=== PATIENT | female | born 1945 | race Caucasian/White ===

== ENCOUNTER 2018-06-07 10:00 | Outpatient (CLI) | payer OTHER ==
--- NOTE | 2018-06-07 11:17 | ULT ---
THYROID ULTRASOUND: History: Thyroid nodules noted on previous CT done at the [place]. FINDINGS: Real-time imaging of the right and left lobes of the thyroid were performed. Right lobe measures 1.2 x 1.3 x 4.1 cm, and the left lobe 1.3 x 1.7 x 4.8 cm. Both the right and left lobes are very heteroge neous. There are bilateral thyroid nodules, the largest on the right is a solid nodule in the lower p ole measuring 1.0 cm and an approximately 0.9 x 1.5 cm solid appearing nodule in the lower pole of th e left lobe. This lesion was slightly hyperechoic. It is wider than tall. The margins are ill-defined . No calcifications seen associated with this. IMPRESSION: Bilateral thyroid nodules, the largest nodule on the left corresponds to a TIRADS level 3 nodule for which follow up would be recommended given one of the measurements is at 1.5 cm. POS: JOSE
== END 2018-06-07 10:01 | disposition home or self-care (01) ==
LOC: SCSULT 10:00
PROVIDERS: ATTEND Internal Medicine
DX: E04.1 Nontoxic single thyroid nodule (principal); E04.2 Nontoxic multinodular goiter
CPT/HCPCS: 76536

== ENCOUNTER 2019-09-26 18:01 | Inpatient (IN) | payer OTHER ==
[2019-09-26] MEDS ORDERED: Morphine 4 MG/ML VIAL ONE ×2 (18:33→21:00)
[2019-09-26] MEDS ORDERED: Ketorolac Tromethamine 30 MG/ML VIAL ONE (19:15)
[2019-09-27] MEDS: Morphine 2 MG/ML SYRINGE SLOW IVP PRN ×2 (00:33→05:50)
[2019-09-27 00:42] VITALS: BMI 27.7
[2019-09-27] MEDS ORDERED: HYDROcodone/Acetaminophen 5/325 mg Tablet PO PRN ×2 (03:41)
[2019-09-27] MEDS ORDERED: Senokot S 8.6-50 MG TAB PO PRN (03:41)
[2019-09-27] MEDS ORDERED: Ondansetron PF 4 MG/2 ML Vial IVP PRN (03:41)
[2019-09-27] MEDS ORDERED: Bisacodyl 5 MG TAB PO PRN (03:41)
[2019-09-27] MEDS ORDERED: Bisacodyl 10 MG SUPP PR PRN (03:41)
[2019-09-27] MEDS ORDERED: Loperamide HCl 2 MG CAP PO PRN ×2 (03:41)
[2019-09-27] MEDS ORDERED: Acetaminophen 325 MG TAB PO PRN (03:41)
[2019-09-27] MEDS ORDERED: Acetaminophen 650 MG Suppository PR PRN (03:41)
--- NOTE | 2019-09-27 03:45 | PDOC.HHP ---
Hospitalist HPI - History of Present Illness Back pain, fall History of Present Illness: Patient is a 74 year male with PMH metastatic lung cancer on hospice care at home who preesnts to ED after having fall and subsequent acute on chronic back pain. She is on 3L oxygen at home, and at time of interview is sleeping but rousable, not very talkative denies chest pain or shortness of breath. Reversed hospice by being admitted here. recieved fentanyl in ED which apparantly worked very well. Hospitalist ROS - Review of Systems Constitutional: denies: fever, chills, sweats, weakness, malaise, other Eyes: denies: pain, vision change, conjunctivae inflammation, eyelid inflammation, redness, other ENT: denies: ear pain, ear discharge, nose pain, nose discharge, nose congestion , mouth pain, mouth swelling, throat pain, throat swelling, other Respiratory: denies: cough, dry, shortness of breath, hemoptysis, SOB with excertion, pleuritic pain, sputum, wheezing, other Cardiovascular: denies: chest pain, palpitations, orthopnea, paroxysmal noc. dyspnea, edema, light headedness, other Gastrointestinal: denies: nausea, vomiting, abdominal pain, diarrhea, constipation, melena, hematochezia, other Genitourinary: denies: dysuria, frequency, incontinence, hematuria, retention, other Musculoskeletal: reports: back pain Skin: denies: rash, lesions, bryan, bruising, other Neurological: denies: weakness, numbness, incoordination, change in speech, confusion, seizures, other All other systems reviewed; all pertinent +/- noted in HPI/Subj - Medication Medications: Active Medications Generic Name Dose Route Start Last Admin Trade Name Freq PRN Reason Stop Dose Admin Morphine Sulfate 2 mg 09/27/19 00:22 09/27/19 00:33 Morphine SLOW IVP 2 mg Q4H PRN Administration Severe Pain (7-10) Hospitalist History - Past Medical History Other Medical History: lung cancer chronic hypoxic resp failure - Past Surgical History Past Surgical History: reports: no pertinent history - Family History Family History: reports: no pertinent history - Social History Smoking Status: Former smoker Alcohol: reports: None Drugs: reports: none - Exam General Appearance: NAD, awake alert Eye: PERRL, anicteric sclera ENT: normocephalic atraumatic, no oropharyngeal lesions, moist mucosa Neck: supple, symmetric, no JVD, no thyromegaly, no lymphadenopathy, no carotid bruit Heart: RRR, no murmur, no gallops, no rubs, normal peripheral pulses Respiratory: CTAB, no wheezes, no rales, no ronchi, normal chest expansion, no tachypnea, normal percussion Gastrointestinal: soft, non-tender, non-distended, normal bowel sounds, no palpable masses, no hepatomegaly, no splenomegaly, no bruit Extremities: no cyanosis, no clubbing, no edema Skin: normal turgor, no lesions, no rashes Neurological: cranial nerve grossly intact, normal sensation to touch, no weakness, no focal deficits, no new deficit Musculoskeletal: normal tone, normal strength, no muscle wasting Psychiatric: normal affect, normal behavior, A&O x 3 Hospitalist Results - Labs Result Diagrams: 09/27/19 05:44 09/27/19 05:44 Hospitalist H&P A/P - Plan Plan: # intractable back pain, fall - patient was on hospice, now has been reversed but pain controlled with IV meds overnight hopefully can switch to PO today for possible d/c, PT/OT consulted to eval for risk of future falls, hospice nurse said the fall was not severe and no imaging done in ED , follow up PT/OT - bowel regimen, montior for BM on new pain medications # chronic hypoxic resp failure - continue 3L o2 # metastatic lung cancer - consulted palliative care and case management to help with arranging smooth transition back to hospice on discharge. # HTn - perhaps due to pain, resume home meds and PRNs in chart Code: DNAR
[2019-09-27 06:08] LABS: #Basophils 0.1 thou/uL (0.0-0.2); #Eosinphils 0.1 thou/uL (0.0-0.7); #Lymphocytes 1.9 thou/uL (1.20-3.40); #Monocytes 1.2 thou/uL (0.11-0.59); #Neutrophils 9.3 thou/uL (1.40-6.50); %Basophils 0.7 % (0.0-1.0); %Eosinophils 0.9 % (0.0-10.0); %Lymphocytes 15.4 % (21.0-51.0); %Monocytes 9.3 % (0.0-10.0); %Neutrophils 73.8 % (42.0-75.0); Hemoglobin 12.5 g/dL (12.0-16.0); Mean Corpuscular Hemoglobin 32.4 pg (27.0-31.0); Mean Platelet Volume 7.8 fL (7.4-10.4); Platelet Count 222 thou/uL (130-400); RBC Distribution Width 12.6 % (11.5-14.5); Red Blood Cell (RBC) Count 3.85 mill/uL (4.20-5.40); White Blood Cell (WBC) Count 12.6 thou/uL (4.8-10.8)
[2019-09-27 06:14] LABS: Actual Bicarbonate (HCO3v) 31 mEq/L (22-28); Base Excess 7.4 mEq/L (-2.0 to +3.0); Calcium, Ionized 1.29 mmol/L (1.16-1.32); Chloride (ABG LAB) 93 mmol/L (98-106); Hemoglobin (Hb) 13.1 g/dL (11.7-16.1); Potassium - ABG Lab 4.15 mmol/L (3.70-5.30); Sodium 130.5 mmol/L (133-146)
[2019-09-27 06:33] LABS: Anion Gap 10 mmol/L (10-20); BUN (Urea Nitrogen) 34 mg/dL (9.8-20.1); Calc. Creatinine Clearance 99 mL/min (70-130); Carbon Dioxide 34 mmol/L (23-31); Chloride 93 mmol/L (98-107); Estimated GFR-MDRD 88; Glucose 107 mg/dL (83-110); Magnesium 1.3 mg/dL (1.6-2.6); Potassium 4.1 mmol/L (3.5-5.1); Sodium 133 mmol/L (136-145)
[2019-09-27] MEDS ORDERED: Dextrose 5% in Water 1,000 ML IV PRN (06:58)
[2019-09-27] MEDS ORDERED: Insulin Regular 300 UNITS/3 ML VIAL SC PRN (06:58)
[2019-09-27] MEDS ORDERED: Dextrose 50% Abboject 50 ML SYRINGE SLOW IVP PRN (06:58)
[2019-09-27 07:05] VITALS: TEMP 98.1
[2019-09-27] MEDS ORDERED: fentaNYL 75 mcg/hour Patch TD SCH (08:00)
[2019-09-27] MEDS: Lorazepam 2 MG/ML VIAL SLOW IVP PRN ×2 (08:36→14:45)
[2019-09-27] MEDS ORDERED: Dexamethasone 4 MG TAB PO SCH (09:00)
[2019-09-27] MEDS ORDERED: Losartan 25 MG TAB PO SCH (09:00)
[2019-09-27] MEDS ORDERED: Senokot S 8.6-50 MG TAB PO SCH (09:00)
[2019-09-27] MEDS ORDERED: Polyethylene Glycol 3350 17 GM Packet PO SCH (09:00)
[2019-09-27] MEDS ORDERED: metFORMIN 500 MG TAB PO SCH (09:00)
[2019-09-27] MEDS ORDERED: Morphine 10 MG/ML VIAL SLOW IVP PRN ×2 (09:20→10:38)
--- NOTE | 2019-09-27 10:32 | PDOC.HOSPP ---
- Subjective Encounter Date: 09/27/19 Encounter Time: 10:30 - Objective Vital Signs & Weight: Vital Signs (12 hours) Temp Pulse Resp BP BP Pulse Ox 09/27/19 07:03 98.1 F 76 19 119/71 98 09/27/19 05:26 97.1 F L 78 18 168/79 H 94 L 09/27/19 00:30 94 L 09/26/19 23:45 97.7 F 84 18 181/74 H 94 L Weight Weight 82.826 kg Result Diagrams: 09/27/19 05:44 09/27/19 05:44 Additional Labs: Accuchecks 09/27/19 08:45 POC Glucose 140 H Hospitalist ROS - Medication Medications: Active Medications Generic Name Dose Route Start Last Admin Trade Name Freq PRN Reason Stop Dose Admin Dexamethasone 4 mg 09/27/19 09:00 09/27/19 09:52 Decadron PO Not Given DAILY [facility] Fentanyl 75 mcg 09/27/19 08:00 09/27/19 06:51 Duragesic TD 75 mcg Q3D CHRISTEN Administration Lorazepam 0.5 mg 09/27/19 03:44 09/27/19 08:36 Ativan SLOW IVP 0.5 mg Q4H PRN Administration Anxiety/Agitation Losartan Potassium 100 mg 09/27/19 09:00 09/27/19 09:52 Cozaar PO Not Given DAILY [facility] Metformin HCl 500 mg 09/27/19 09:00 09/27/19 09:52 Glucophage PO Not Given BID [facility] Morphine Sulfate 2 mg 09/27/19 00:22 09/27/19 05:50 Morphine SLOW IVP 2 mg Q4H PRN Administration Severe Pain (7-10) Morphine Sulfate 10 mg 09/27/19 09:20 09/27/19 09:53 Morphine SLOW IVP 10 mg Q6H PRN Administration PAIN/SOB Polyethylene Glycol 17 gm 09/27/19 09:00 09/27/19 08:55 Miralax PO Not Given DAILY [facility] Senna/Docusate Sodium 1 tab 09/27/19 09:00 09/27/19 08:55 Senokot S PO Not Given BID [facility] Sodium Chloride 10 ml 09/27/19 09:00 09/27/19 08:55 Flush - Normal Saline IVF Not Given Q12HR [facility] - Exam Heart: RRR, no murmur, no gallops, no rubs Respiratory: CTAB, no wheezes, no rales, no ronchi Gastrointestinal: soft, non-tender, non-distended, normal bowel sounds, no guarding, no rigidity Extremities: no edema Skin: no lesions, no rashes
[2019-09-27 15:05] VITALS: BP 123/79
[2019-09-27] MEDS ORDERED: Gabapentin 400 MG CAP PO SCH (21:00)
[2019-09-27] MEDS ORDERED: Gabapentin 100 MG CAP PO SCH (21:00)
--- NOTE | 2019-10-31 20:57 | PQF ---
TIM COSTA MICHAEL, MD [id number] CLINICAL DOCUMENTATION CLARIFICATION FORM: POST DISCHARGE Addendum to original discharge summary date: ____ Late entry note date: __ DATE:10/31/2019 ATTN:ARMAND HERNANDEZ MD Please exercise your independent, professional judgment in responding to the clarification form. Clinical indicators are provided on the bottom of this form for your review Please check appropriate box(s): kindly clarify the back pain etiology [ ] Intractable back pain due to fall [ ] Intractable back pain due to lung cancer [ ] Other diagnosis [ ] Unable to determine For continuity of documentation, please document condition throughout progress notes and discharge summary. Thank You. CLINICAL INDICATORS - SIGNS / SYMPTOMS / LABS Patient came earlier today for fall and was called back back pain. Patient on hospice with lung cancer -Documented in ED on 09/26 by Delmis Schultz Patient fell earlier today but this fall did not cause her much pain-Documented in ED on 09/26 by Delmis Schultz Lung cancer stage 4--Documented in ED on 09/26 by Delmis Schultz Patient presents ED after having fall and subsequent acute on chronic back pain- Documented in H&P on 09/26 by Armand Hernandez MD RISK FACTORS Patient fell earlier today -Documented in ED on 09/26 by Delmis Schultz Lung cancer stage 4--Documented in ED on 09/26 by Delmis Schultz TREATMENTS: Pain controlled with IV meds overnight-Documented in H&P on 09/26 by Armand Hernandez MD PT/OT consulted to eval for risk of further falls-Documented in H&P on 09/26 by Armand Hernandez MD Morphine 10 mg IV-Documented in medication snapshot Morphine 40 mg PO-Documented in medication snapshot [employer] Moisture Meter Operator [employer] Winform Viewer (This form is maintained as a part of the permanent medical record) 2014 [email or web address], [email or web address]. All Rights Reserved [email or web address] [phone] [email or web address]
== END 2019-09-27 15:53 | disposition hospice, inpatient (51) | DRG 552 ==
LOC: ERS 18:01 → T4-A 22:09
PROVIDERS: ADMIT Family Medicine; ATTEND Family Medicine
DX: M54.9 Dorsalgia, unspecified (principal); C34.90 Malignant neoplasm of unspecified part of unspecified bronchus or lung; J96.11 Chronic respiratory failure with hypoxia; J44.9 Chronic obstructive pulmonary disease, unspecified; E11.9 Type 2 diabetes mellitus without complications; Z87.891 Personal history of nicotine dependence; I11.0 Hypertensive heart disease with heart failure; I50.9 Heart failure, unspecified; Z66 Do not resuscitate; Z51.5 Encounter for palliative care; G89.29 Other chronic pain; W18.39XA Other fall on same level, initial encounter; Y93.89 Activity, other specified; Y92.89 Other specified places as the place of occurrence of the external cause
CPT/HCPCS: 36415; 36416; 80048; 82805; 83735; 85025; 96374; 96375; 96376; J1885; J2060; J2270

== ENCOUNTER 2019-09-27 16:04 | Inpatient (IN) | payer OTHER ==
[2019-09-27] MEDS ORDERED: fentaNYL 75 mcg/hour Patch TD SCH (18:00)
[2019-09-27] MEDS: Morphine 10 MG/ML VIAL SLOW IVP PRN ×2 (20:34→23:41)
[2019-09-27] MEDS: metFORMIN 500 MG TAB PO SCH (20:49)
[2019-09-28] MEDS: Morphine 10 MG/ML VIAL SLOW IVP PRN ×4 (04:03→20:51)
[2019-09-28] MEDS: Polyethylene Glycol 3350 17 GM Packet PO SCH (08:08)
[2019-09-28] MEDS: Losartan 25 MG TAB PO SCH (08:08)
[2019-09-28] MEDS: metFORMIN 500 MG TAB PO SCH ×2 (08:08→20:46)
[2019-09-28] MEDS: Dexamethasone 4 MG TAB PO SCH (08:09)
[2019-09-28] MEDS: Lorazepam 2 MG/ML VIAL SLOW IVP PRN ×2 (11:58→23:43)
[2019-09-29] MEDS: Morphine 10 MG/ML VIAL SLOW IVP PRN ×7 (01:06→19:01)
[2019-09-29] MEDS: Lorazepam 2 MG/ML VIAL SLOW IVP PRN ×4 (04:05→16:37)
[2019-09-29] MEDS: Dexamethasone 4 MG TAB PO SCH (08:04)
[2019-09-29] MEDS: Losartan 25 MG TAB PO SCH (08:04)
[2019-09-29] MEDS: Polyethylene Glycol 3350 17 GM Packet PO SCH (08:05)
[2019-09-29] MEDS: metFORMIN 500 MG TAB PO SCH ×2 (08:05→20:04)
[2019-09-29] MEDS ORDERED: Scopolamine 1.5 mg/72 hour Patch TOP PRN (11:41)
[2019-09-29] MEDS ORDERED: Scopolamine 1.5 mg/72 hour Patch TOP SCH (11:45)
[2019-09-29 19:34] VITALS: BP 110/69; TEMP 99.9
--- NOTE | 2019-09-30 13:44 | DIS ---
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 HOSPITAL COURSE: The patient was admitted for pain control after failing outpatient pain control attempts by hospice at home. The patient was admitted and given IV morphine and titration up to effect for her pain control. The patient had finally got under control after the first day, she was at ease and on the 29 of September without incident and comfortable for the last day or so of her life. Family was at bedside and the family was also made aware. Job ID: [id number]
--- NOTE | 2019-10-10 08:05 | HP ---
HISTORY OF PRESENT ILLNESS: The patient is a 74-year-old female, admitted through the ER for inpatient hospice. Past medical history positive for metastatic adenocarcinoma of the lung with poor pain control. She has been on [facility] at home. Difficulty has been trying to control her pain. Evidence of likely metastasis to bone. She had failed morphine as well as fentanyl patch at home, some difficulty in asserting that she was actually getting her pain medicine per schedule due to some hesitation and fear on the patient's part. Plan is for her to be kept comfortable in the hospice service as expectation is she will not survive long. MEDICATIONS: IV morphine. Initial medication dosing apparently has been able to provide some comfort to her. Job ID: [id number]
== END 2019-09-29 23:00 | disposition expired | DRG 951 ==
LOC: T4-A 16:04
PROVIDERS: ADMIT Family Medicine; ATTEND Family Medicine
DX: Z51.5 Encounter for palliative care (principal); C34.90 Malignant neoplasm of unspecified part of unspecified bronchus or lung; J96.11 Chronic respiratory failure with hypoxia; C79.51 Secondary malignant neoplasm of bone; C79.31 Secondary malignant neoplasm of brain; Z66 Do not resuscitate; M54.5 Low back pain; I10 Essential (primary) hypertension; Z99.81 Dependence on supplemental oxygen; Z87.891 Personal history of nicotine dependence
CPT/HCPCS: 36416; J2060; J2270